=== PATIENT | male | born 1990 | race Caucasian/White ===

== ENCOUNTER 2017-02-12 03:58 | Emergency (ER) | payer SELFPAY ==
[~2017-02-12] VITALS: Ht 170.2 cm; Wt 72.6 kg
--- NOTE | 2017-02-12 03:58 | NUR ---
PT BIB [facility], PREBOOK. TAKEN TO OF
[2017-02-12 03:59] VITALS: BP 151/93
--- NOTE | 2017-02-12 04:20 | NUR ---
Dr. Jackson evaluating patient at bedside.
--- NOTE | 2017-02-12 04:35 | NUR ---
PT TAKEN TO RADIOLOGY
--- NOTE | 2017-02-12 04:55 | NUR ---
PT RETURN FROM RADIOLOGY
[2017-02-12 05:51] VITALS: BP 144/88
--- NOTE | 2017-02-12 05:51 | NUR ---
Patient discharged with v/s stable. Written and verbal after care instructions given and explained. Patient verbalized understanding. Police with in custody. All questions addressed prior to discharge. Advised to follow up with PMD.
== END 2017-02-12 05:51 ==
LOC: MED 03:58
DX: S13.4XXA Sprain of ligaments of cervical spine, initial encounter (principal); S33.5XXA Sprain of ligaments of lumbar spine, initial encounter; S70.12XA Contusion of left thigh, initial encounter; V49.40XA Driver injured in collision with unspecified motor vehicles in traffic accident, initial encounter; Y93.89 Activity, other specified; Y92.89 Other specified places as the place of occurrence of the external cause; Y99.8 Other external cause status
CPT/HCPCS: 71250; 72125; 72131; 99284